=== PATIENT | male | born 1995 | race Caucasian/White ===

== ENCOUNTER 2018-12-04 14:10 | Emergency (ER) | payer BC ==
[~2018-12-04] VITALS: Ht 167.6 cm; Wt 71.1 kg
[2018-12-04 14:24] VITALS: BP 125/76; PULSE 72; RESP 16; Ht 167.6 cm; Wt 71.1 kg
[2018-12-04] MEDS ORDERED: SODIUM CHLORIDE 0.9% 1L IRRIG IRR STA (15:46)
--- NOTE | 2018-12-04 15:54 | ERD ---
ER Documentation Chief Complaint Chief Complaint LEFT HAND LACERATION FROM PIPER JUVENAL, NO TETANUS SHOT PAST 5 YRS HPI 23-year-old male presents with laceration to his left hand from a piper juvenla earlier in the morning. He reports that the blood tremor slipped and cut his hand. He did not lose any fingers and has just suffered surface abrasion in 2-3 spots on his left palmar hand. He reports good 2+ pulses, good motor function in all his fingers, and good sensation in all his fingers. He denies any previous injuries to the left hand. He has not gotten a tetanus shot in the last 5 years. He denies any fevers or signs of infection. He reports 5 out of 10 pain that is constant and localized to his left hand. ROS All systems reviewed and are negative except as per history of present illness. Medications Home Meds Active Scripts Cephalexin* (Cephalexin*) 500 Mg Capsule, 500 MG PO BID, #14 CAP Prov:MATAVOSIANSILVIAC 12/04/18 Acetaminophen* (Tylophen*) 500 Mg Capsule, 1 CAP PO Q6H PRN for PAIN AND OR ELEVATED TEMP, #20 CAP Prov:SILVIA SMITH PA-C 12/04/18 Allergies Allergies: Coded Allergies: No Known Allergy (Unverified , 12/04/18) PMhx/Soc Medical and Surgical Hx: pt denies Medical Hx FmHx Family History: No diabetes Physical Exam Vitals Vital Signs Date Temp Pulse Resp B/P (MAP) Pulse Ox O2 O2 Flow FiO2 Time Delivery Rate 12/04/18 98.4 72 16 125/76 99 14:24 (92) Physical Exam Const: No acute distress Head: Atraumatic Eyes: Normal Conjunctiva ENT: Normal External Ears, Nose and Mouth. Neck: Full range of motion. Resp: Clear to auscultation bilaterally Cardio: Regular rate and rhythm Abd: Soft, non tender, non distended. Skin: No petechiae or rashes Back: No midline or flank tenderness Ext: Surface abrasions to the left palmar hand. 2+ pulses, good motor function, good sensation in all fingers Neur: Awake and alert Psych: Normal Mood and Affect Results 24 hrs Current Medications Medications Dose Sig/Cristin Start Time Status Last (Trade) Ordered Route PRN Stop Time Admin Dose Reason Admin Diphtheria/ 0.5 ml ONCE ONCE 12/04/18 DC 12/04/18 Tetanus/Acell IM* 16:00 15:56 Pertussis 12/04/18 16:01 (Adacel) Sodium 1,000 ml ONCE STAT 12/04/18 DC Chloride IRR 15:46 (NS (Irrig)) 12/04/18 15:49 Procedures/MDM ED COURSE: The patient was stable throughout ED course. I kept the patient informed of laboratory and diagnostic imaging results throughout the ED course. PROCEDURES: Dermabond and Steristrips MEDICATIONS GIVEN: none MEDICAL DECISION MAKING: Patient is a 23 year old male presenting with a laceration to his left hand earlier today. Patient has good movement and sensation in his hand and fingers. He has superficial wounds to his left palmar hand. After examining the abrasions, I do not think sutures were necessary at this time. Dermabond and saved strips were applied to the patient's hand. Bleeding was minimal. The patient tolerated the procedure well with no complications. The patient was neurovascularly intact post-procedure. Post- procedural wound care was discussed with the patient. Vital signs were reviewed. Patient is afebrile. Patient was not hypoxic. Patient was hemodynamically stable. PRESCRIPTION: Keflex and Tylenol DISCHARGE: At this time, patient is stable for discharge and outpatient management. I have instructed the patient to follow-up with his/her primary care physician in 1-2 days. I have discussed with the patient the possibility of needing to see a specialist for further workup and imaging studies if symptoms persist. I have instructed the patient to promptly return to the ER for any new or worsening symptoms including increased pain, fever, nausea, vomiting, weakness or LOC. The patient and/or family expressed understanding of and agreement with this plan. All questions were answered. Home care instructions were provided. Disclaimer: Inadvertent spelling and grammatical errors are likely due to E HR/dictation software use and do not reflect on the overall quality of patient care. Also, please note that the electronic time recorded on this note does not necessarily reflect the actual time of the patient encounter. Departure Diagnosis: Primary Impression: Laceration Condition: Fair Patient Instructions: Laceration, Hand Referrals: COMMUNITY CLINICS YOU HAVE RECEIVED A MEDICAL SCREENING EXAM AND THE RESULTS INDICATE THAT YOU DO NOT HAVE A CONDITION THAT REQUIRES URGENT TREATMENT IN THE EMERGENCY DEPARTMENT. FURTHER EVALUATION AND TREATMENT OF YOUR CONDITION CAN WAIT UNTIL YOU ARE SEEN IN YOUR DOCTORS OFFICE WITHIN THE NEXT 1-2 DAYS. IT IS YOUR RESPONSIBILITY TO MAKE AN APPOINTMENT FOR FOLOW-UP CARE. IF YOU HAVE A PRIMARY DOCTOR --you should call your primary doctor and schedule an appointment IF YOU DO NOT HAVE A PRIMARY DOCTOR YOU CAN CALL OUR PHYSICIAN REFERRAL HOTLINE AT IF YOU CAN NOT AFFORD TO SEE A PHYSICIAN YOU CAN CHOSE FROM THE FOLLOWING [facility] [address] [facility] [address] [facility] [address] [facility] [address] [facility]. [facility] [address] [facility]. [facility] [address] [facility]. [facility] YOU HAVE RECEIVED A MEDICAL SCREENING EXAM AND THE RESULTS INDICATE THAT YOU DO NOT HAVE A CONDITION THAT REQUIRES URGENT TREATMENT IN THE EMERGENCY DEPARTMENT. FURTHER EVALUATION AND TREATMENT OF YOUR CONDITION CAN WAIT UNTIL YOU ARE SEEN IN YOUR DOCTORS OFFICE WITHIN THE NEXT 1-2 DAYS. IT IS YOUR RESPONSIBILITY TO MAKE AN APPOINTMENT FOR FOLOW-UP CARE. IF YOU HAVE A PRIMARY DOCTOR --you should call your primary doctor and schedule and appointment IF YOU DO NOT HAVE A PRIMARY DOCTOR YOU CAN CALL OUR PHYSICIAN REFERRAL HOTLINE AT . IF YOU CAN NOT AFFORD TO SEE A PHYSICIAN YOU CAN CHOSE FROM THE FOLLOWING [facility]: [facility] [address] [place] [address] [facility] [address] [place] [address] [facility] [address] [place] [address] Additional Instructions: Call your primary care doctor TOMORROW for an appointment during the next 1-2 days.See the doctor sooner or return here if your condition worsens before your appointment time. SILVIA SMITH PA-C Dec 04, 2018 15:54
[2018-12-04] MEDS ORDERED: DIPHTH/TET/ACEL PERTUSS (ADULT) 0.5 ML VIAL IM* ONE (16:00)
[2018-12-04] MEDS ORDERED: ACET500C5 PO (16:26)
[2018-12-04] MEDS ORDERED: CEPH500C PO (16:28)
== END 2018-12-04 16:33 | disposition home or self-care (01) ==
LOC: FTE 14:10
DX: S61.412A Laceration without foreign body of left hand, initial encounter (principal); W29.3XXA Contact with powered garden and outdoor hand tools and machinery, initial encounter; Y92.9 Unspecified place or not applicable; Z23 Encounter for immunization
CPT/HCPCS: 90471; 90715

== ENCOUNTER 2018-12-09 06:15 | Emergency (ER) | payer BC ==
[~2018-12-09] VITALS: Ht 170.2 cm; Wt 61.0 kg
[~2018-12-09 06:15] MED LIST: ACET500C5 PO; CEPH500C PO
[2018-12-09 06:23] VITALS: BP 124/80; PULSE 68; RESP 18; Ht 170.2 cm; Wt 61.0 kg
[2018-12-09] MEDS ORDERED: BACI28.34 TOP (06:50)
--- NOTE | 2018-12-09 06:51 | ERD ---
ER Documentation Chief Complaint Chief Complaint wound check on lt hand HPI 23-year-old male presents for follow-up for previous laceration by a guo juvenal on his left hand. He had lacerations above his left thumb, and under the digits 2-4 on the palmar side of the hand. He denies any fevers, decreased range of motion or sensation. He reports good blood flow. He denies any excessive pain. He states that he has been keeping it clean with the Steri- Strips. Denies any excessive warmth to the lacerations. He reports that he is been taking the antibiotics Keflex that was prescribed to him last visit. ROS All systems reviewed and are negative except as per history of present illness. Medications Home Meds Active Scripts Bacitracin* (Bacitracin Zinc Oint*) 28.35 Gm Oint, 1 APPLIC TOP TID for 7 Days, TUB APPLY TO Prov:SILVIA SMITH PA-C 12/09/18 Cephalexin* (Cephalexin*) 500 Mg Capsule, 500 MG PO BID, #14 CAP Prov:SILVIA SMITH PA-C 12/04/18 Acetaminophen* (Tylophen*) 500 Mg Capsule, 1 CAP PO Q6H PRN for PAIN AND OR ELEVATED TEMP, #20 CAP Prov:SILVIA SMITH PA-C 12/04/18 Allergies Allergies: Coded Allergies: No Known Allergy (Unverified , 12/09/18) PMhx/Soc Hx Cardiac Disorders: Yes (HIGH CHOLESTEROL) Hx Alcohol Use: No Hx Substance Use: No Hx Tobacco Use: No Smoking Status: Never smoker FmHx Family History: No diabetes Physical Exam Vitals Vital Signs Date Temp Pulse Resp B/P (MAP) Pulse Ox O2 O2 Flow FiO2 Time Delivery Rate 12/09/18 98.1 68 18 124/80 99 06:23 (95) Physical Exam Const: No acute distress Head: Atraumatic Eyes: Normal Conjunctiva ENT: Normal External Ears, Nose and Mouth. Neck: Full range of motion. No meningismus. Resp: Clear to auscultation bilaterally Cardio: Regular rate and rhythm, no murmurs Abd: Soft, non tender, non distended. Normal bowel sounds Skin: No petechiae or rashes Back: No midline or flank tenderness Ext: Left hand: Laceration above the thumb, and digits 2 through 4. Non- erythematous, not warm to touch. Healing well and appropriately. Neur: Awake and alert Psych: Normal Mood and Affect Procedures/MDM ED COURSE: The patient was stable throughout ED course. I kept the patient informed of laboratory and diagnostic imaging results throughout the ED course. MEDICATIONS GIVEN: [None} MEDICAL DECISION MAKING: Patient is a 23-year-old male that had a previous laceration by burst tremor on his left hand few days ago. He was seen in the ED by me and Dr. Diaz. We recommended that we just cleaned up the wound and used Dermabond and Steri- Strips in order for to heal as we do not think sutures were necessary at that time. Today the lacerations are healing appropriately with no signs of infection. H&P and other data no c/w emergent process. Low suspicion for anaphylaxis, SJS/TEN, TTP, ITP, erythema multiforme, sepsis, cellulitis, necrotizing fasciitis, gangrene, meningococcemia, allergic contact dermatitis, urticaria, eczema, tinea infection, or other emergent conditions. Patient's lac erations were cleaned and reapplied with brand-new Steri-Strips. Vital signs were reviewed. Patient is afebrile. Patient was not hypoxic. Patient was hemodynamically stable. PRESCRIPTION: Bacitracin DISCHARGE: At this time, patient is stable for discharge and outpatient management. I have instructed the patient to follow-up with his/her primary care physician in 1-2 days. I have discussed with the patient the possibility of needing to see a specialist for further workup and imaging studies if symptoms persist. I have instructed the patient to promptly return to the ER for any new or worsening symptoms including increased pain, fever, nausea, vomiting, weakness or LOC. The patient and/or family expressed understanding of and agreement with this plan. All questions were answered. Home care instructions were provided. Disclaimer: Inadvertent spelling and grammatical errors are likely due to EHR/dictation software use and do not reflect on the overall quality of patient care. Also, please note that the electronic time recorded on this note does not necessarily reflect the actual time of the patient encounter. Departure Diagnosis: Primary Impression: Encounter for wound re-check Condition: Fair Patient Instructions: Wound Care, Wound Check, Lac F/U (No Infection) Referrals: COMMUNITY CLINICS YOU HAVE RECEIVED A MEDICAL SCREENING EXAM AND THE RESULTS INDICATE THAT YOU DO NOT HAVE A CONDITION THAT REQUIRES URGENT TREATMENT IN THE EMERGENCY DEPARTMENT. FURTHER EVALUATION AND TREATMENT OF YOUR CONDITION CAN WAIT UNTIL YOU ARE SEEN IN YOUR DOCTORS OFFICE WITHIN THE NEXT 1-2 DAYS. IT IS YOUR RESPONSIBILITY TO MAKE AN APPOINTMENT FOR FOLOW-UP CARE. IF YOU HAVE A PRIMARY DOCTOR --you should call your primary doctor and schedule an appointment IF YOU DO NOT HAVE A PRIMARY DOCTOR YOU CAN CALL OUR PHYSICIAN REFERRAL HOTLINE AT IF YOU CAN NOT AFFORD TO SEE A PHYSICIAN YOU CAN CHOSE FROM THE FOLLOWING [facility][1] [address] [facility] [address] [facility] [address] [facility] [address] [facility] [address] [facility]. [facility] [address] [facility]. [facility] YOU HAVE RECEIVED A MEDICAL SCREENING EXAM AND THE RESULTS INDICATE THAT YOU DO NOT HAVE A CONDITION THAT REQUIRES URGENT TREATMENT IN THE EMERGENCY DEPARTMENT. FURTHER EVALUATION AND TREATMENT OF YOUR CONDITION CAN WAIT UNTIL YOU ARE SEEN IN YOUR DOCTORS OFFICE WITHIN THE NEXT 1-2 DAYS. IT IS YOUR RESPONSIBILITY TO MAKE AN APPOINTMENT FOR FOLOW-UP CARE. IF YOU HAVE A PRIMARY DOCTOR --you should call your primary doctor and schedule and appointment IF YOU DO NOT HAVE A PRIMARY DOCTOR YOU CAN CALL OUR PHYSICIAN REFERRAL HOTLINE AT . IF YOU CAN NOT AFFORD TO SEE A PHYSICIAN YOU CAN CHOSE FROM THE FOLLOWING [facility]: [facility] [address] [place] [address] [facility] [address] [place] [address] [facility] [address] [place] [address] Additional Instructions: Call your primary care doctor TOMORROW for an appointment during the next 2-3 days.See the doctor sooner or return here if your condition worsens before your appointment time. SILVIA SMITH PA-C Dec 09, 2018 06:50
== END 2018-12-09 07:02 | disposition home or self-care (01) ==
LOC: FTE 06:15
DX: Z48.01 Encounter for change or removal of surgical wound dressing (principal)
CPT/HCPCS: 99282